=== PATIENT | male | born 1960 ===

== ENCOUNTER 2017-12-25 18:45 | Observation (INO) ==
[2017-12-25] MEDS ORDERED: ACETAMINOPHEN 325 MG TABLET PO PRN (22:45)
[2017-12-25] MEDS ORDERED: ONDANSETRON 4 MG/2 ML VIAL IV PRN (22:45)
[2017-12-25] MEDS ORDERED: DEXTROSE 50% 25 GM/50 ML VIAL IV PRN (22:45)
[2017-12-25] MEDS ORDERED: GLUCAGON 1 MG VIAL IM PRN (22:45)
[2017-12-25] MEDS ORDERED: SIMVASTATIN 20 MG TABLET PO SCH (23:00)
[2017-12-25] MEDS ORDERED: SODIUM CHLORIDE 0.9% 1,000 ML IV SCH (23:00)
[2017-12-25] MEDS ORDERED: NITROGLYCERIN SL 0.4 MG TABLET SL PRN (23:17)
[2017-12-25] MEDS ORDERED: MORPHINE 4 MG/1 ML VIAL IV PRN (23:18)
[2017-12-25] MEDS ORDERED: cloNIDine 0.1 MG TABLET PO PRN (23:19)
[2017-12-25 23:30] LABS: Troponin I < 0.015 NG/ML (0.00-0.045)
[2017-12-25] MEDS: CARVEDILOL 3.125 MG TABLET PO SCH (23:31)
[2017-12-25] MEDS: INSULIN GLARGINE 100 UNIT/ML SUBCUT SCH (23:33)
[2017-12-26 03:46] LABS: Basophils # 0.1 10*3/uL (0.0-0.2); Basophils % 0.6 % (0.0-0.8); Eosinophils # 1.3 10*3/uL (0.0-0.87); Eosinophils % 16.5 % (0.00-10.9); Hemoglobin 9.6 GM/DL (14.0-18.0); Immature Granulocytes % 0.3 %; Immature Granulocytes Absolute 0.02 #; Lymphocytes % 24.5 % (21.2-54.2); Mean Corpuscular HGB Conc 33.1 GM/DL (32-36); Mean Corpuscular Hemoglobin 32 PG (27-34); Mean Platelet Volume 10.5 FL (9.6-12.0); Monocytes # 0.7 10*3/uL (0.11-0.8); Monocytes % 9.2 % (1.7-12.7); Neutrophils # 3.9 10*3/uL (1.4-7.4); Neutrophils % 48.9 % (38.7-73.9); Platelet Count 171 T/CUMM (130-400); Red Blood Count 2.99 MC/CUMM (3.8-5.5); Red Cell Distribution Width 13.2 % (9.3-17.3)
[2017-12-26 04:36] LABS: Band Neutrophils 1 % (0-10); Eosinophils 17 % (0-10); Lymphocytes 20 % (20-55); Segmented Neutrophils 54 % (50-85); Total Cells Counted 100
[2017-12-26 04:37] LABS: Hypochromasia 1+; Ovalocytes Slight; Platelet Estimate Adequate
[2017-12-26 04:58] LABS: Alanine Aminotransferase 18 U/L (16-61); Albumin 2.3 G/DL (3.4-5.0); Alkaline Phosphatase 93 U/L (45-117); Aspartate Amino Transferase 15 U/L (0-37); Bilirubin,Total < 0.39 MG/DL (0.2-1.0); Blood Urea Nitrogen 35 MG/DL (7-18); Calcium 7.5 MG/DL (8.5-10.1); Cholesterol 189 MG/DL (50-200); Glucose 163 MG/DL (74-106); HDL Cholesterol 60 MG/DL (40-60); Osmolality,Calculated 294.1 MOS/KG (273-304); Potassium 3.6 MMOL/L (3.5-5.1); Risk Ratio 3.15; Sodium 142 MMOL/L (136-145); Total Protein 5.5 G/DL (6.4-8.3); Triglycerides 122 MG/DL (2-150); VLDL CHOLESTEROL 24.4 MG/DL
[2017-12-26] MEDS ORDERED: GLYBURIDE PO SCH (08:00)
[2017-12-26] MEDS: CARVEDILOL 3.125 MG TABLET PO SCH (08:47)
[2017-12-26] MEDS: CHLORTHALIDONE 25 MG TABLET PO SCH (08:47)
[2017-12-26] MEDS: LOSARTAN 25 MG TABLET PO SCH (08:47)
[2017-12-26] MEDS: PANTOPRAZOLE 40 MG TABLET PO SCH (08:49)
[2017-12-26] MEDS ORDERED: ASPIRIN CHEW 81 MG TABLET PO SCH (09:00)
[2017-12-26] MEDS ORDERED: SIMVASTATIN 20 MG TABLET PO SCH (09:00)
[2017-12-26] MEDS ORDERED: DILTIAZEM CD 120 MG CAPSULE PO SCH (09:00)
[2017-12-26] MEDS: INSULIN LISPRO 100 UNIT/ML SUBCUT SCH ×4 (09:10→20:37)
[2017-12-26] MEDS ORDERED: hydrALAZINE 20 MG/1 ML VIAL IV PRN (10:12)
[2017-12-26] MEDS: CARVEDILOL 6.25 MG TABLET PO SCH ×2 (11:56→17:36)
[2017-12-26] MEDS ORDERED: LORazepam 2 MG/1 ML VIAL IV PRN (13:58)
[2017-12-26 14:35] LABS: % Iron Saturation 22.7 % (18-50)
[2017-12-26 15:04] LABS: Folate > 24.0 NG/ML (5.4-24.0); Vitamin B12 219 PG/ML (211-911)
[2017-12-26] MEDS: CLORAZEPATE 7.5 MG TABLET PO SCH (20:34)
[2017-12-26] MEDS: INSULIN GLARGINE 100 UNIT/ML SUBCUT SCH (20:37)
[2017-12-26] MEDS ORDERED: ATORVASTATIN 40 MG TABLET PO SCH (21:00)
[2017-12-27 04:21] LABS: Basophils # 0.1 10*3/uL (0.0-0.2); Basophils % 0.8 % (0.0-0.8); Eosinophils # 1.4 10*3/uL (0.0-0.87); Eosinophils % 16.2 % (0.00-10.9); Hematocrit 31.6 VOL% (42.0-52.0); Hemoglobin 10.4 GM/DL (14.0-18.0); Immature Granulocytes % 0.2 %; Immature Granulocytes Absolute 0.02 #; Lymphocytes # 1.6 10*3/uL (1.4-4.0); Lymphocytes % 18.5 % (21.2-54.2); Mean Corpuscular HGB Conc 32.9 GM/DL (32-36); Mean Corpuscular Hemoglobin 31 PG (27-34); Mean Corpuscular Volume 95.2 FL (87-102); Mean Platelet Volume 10.6 FL (9.6-12.0); Monocytes # 0.7 10*3/uL (0.11-0.8); Monocytes % 8.1 % (1.7-12.7); Neutrophils # 4.8 10*3/uL (1.4-7.4); Neutrophils % 56.2 % (38.7-73.9); Platelet Count 174 T/CUMM (130-400); Red Blood Count 3.32 MC/CUMM (3.8-5.5); Red Cell Distribution Width 13.2 % (9.3-17.3); White Blood Count 8.6 T/CUMM (4-12)
[2017-12-27 04:49] LABS: Calcium 7.5 MG/DL (8.5-10.1); Osmolality,Calculated 288.3 MOS/KG (273-304); Potassium 3.7 MMOL/L (3.5-5.1)
[2017-12-27 04:59] LABS: Eosinophils 15 % (0-10); Lymphocytes 23 % (20-55); Microcytosis Slight; Ovalocytes Slight; Platelet Estimate Adequate; Segmented Neutrophils 59 % (50-85); Total Cells Counted 100
[2017-12-27] MEDS: CHLORTHALIDONE 25 MG TABLET PO SCH (08:43)
[2017-12-27] MEDS: CARVEDILOL 6.25 MG TABLET PO SCH (08:43)
[2017-12-27] MEDS: PANTOPRAZOLE 40 MG TABLET PO SCH (08:44)
[2017-12-27] MEDS: LOSARTAN 25 MG TABLET PO SCH (08:44)
[2017-12-27] MEDS: INSULIN LISPRO 100 UNIT/ML SUBCUT SCH (08:44)
[2017-12-27] MEDS: CLORAZEPATE 7.5 MG TABLET PO SCH (08:44)
[2017-12-27] MEDS ORDERED: ASPIRIN EC 81 MG TABLET PO SCH (09:00)
[2017-12-27 12:25] VITALS: BP 116/64
== END 2017-12-27 11:45 | disposition home or self-care (01) ==
LOC: N.TELES 20:22 → INTOOBSV 20:22 → SUATTDRO 20:22
PROVIDERS: ADMIT Internal Medicine; ATTEND Internal Medicine

== ENCOUNTER 2019-01-17 11:01 | Inpatient (IN) ==
[2019-01-17] MEDS ORDERED: ACETAMINOPHEN 325 MG TABLET PO PRN (14:52)
[2019-01-17] MEDS ORDERED: MORPHINE 4 MG/1 ML VIAL IV PRN (14:52)
[2019-01-17] MEDS ORDERED: GLUCAGON 1 MG VIAL IM PRN (14:52)
[2019-01-17] MEDS ORDERED: DEXTROSE 50% 25 GM/50 ML VIAL IV PRN (14:52)
[2019-01-17] MEDS ORDERED: PROMETHAZINE 25 MG/1 ML VIAL IM PRN (14:52)
[2019-01-17] MEDS ORDERED: ceFAZolin 1,000 MG in SYRINGE 1 EACH IV ONE (15:36)
[2019-01-17 15:41] LABS: Basophils # 0.1 10*3/uL (0.0-0.2); Basophils % 0.8 % (0.0-0.8); Eosinophils # 0.9 10*3/uL (0.0-0.87); Eosinophils % 12.1 % (0.00-10.9); Hematocrit 26.2 VOL% (42.0-52.0); Hemoglobin 8.5 GM/DL (14.0-18.0); Immature Granulocytes % 0.3 %; Immature Granulocytes Absolute 0.02 #; Lymphocytes # 1.4 10*3/uL (1.4-4.0); Lymphocytes % 19.6 % (21.2-54.2); Mean Corpuscular HGB Conc 32.4 GM/DL (32-36); Mean Corpuscular Volume 94.9 FL (87-102); Monocytes % 10.3 % (1.7-12.7); Neutrophils % 56.9 % (38.7-73.9); Platelet Count 150 T/CUMM (130-400); Red Blood Count 2.76 MC/CUMM (3.8-5.5); Red Cell Distribution Width 11.7 % (9.3-17.3); White Blood Count 7.4 T/CUMM (4-12)
[2019-01-17 16:05] LABS: Alanine Aminotransferase 19 U/L (16-61); Albumin 2.9 G/DL (3.4-5.0); Alkaline Phosphatase 99 U/L (45-117); Aspartate Amino Transferase 14 U/L (0-37); Bilirubin,Total < 0.39 MG/DL (0.2-1.0); Blood Urea Nitrogen 102 MG/DL (7-18); Calcium 6.7 MG/DL (8.5-10.1); Glucose 170 MG/DL (74-106); Osmolality,Calculated 308.8 MOS/KG (273-304); Total Protein 6.6 G/DL (6.4-8.3)
[2019-01-17 16:23] LABS: Band Neutrophils 1 % (0-10); Eosinophils 12 % (0-10); Hypochromasia Slight; Lymphocytes 18 % (20-55); Platelet Estimate Normal; Segmented Neutrophils 66 % (50-85); Total Cells Counted 100
[2019-01-17] MEDS: INSULIN LISPRO 100 UNIT/ML SUBCUT SCH ×2 (16:34→21:02)
[2019-01-17] MEDS: DOCUSATE SODIUM 100 MG CAPSULE PO SCH (20:57)
[2019-01-18 05:52] LABS: Basophils # 0.1 10*3/uL (0.0-0.2); Basophils % 0.8 % (0.0-0.8); Eosinophils % 13.2 % (0.00-10.9); Hematocrit 26.5 VOL% (42.0-52.0); Hemoglobin 8.8 GM/DL (14.0-18.0); Immature Granulocytes % 0.5 %; Immature Granulocytes Absolute 0.04 #; Lymphocytes # 1.4 10*3/uL (1.4-4.0); Lymphocytes % 18.4 % (21.2-54.2); Mean Corpuscular HGB Conc 33.2 GM/DL (32-36); Mean Corpuscular Volume 94.6 FL (87-102); Mean Platelet Volume 10.7 FL (9.6-12.0); Monocytes % 8.7 % (1.7-12.7); Neutrophils % 58.4 % (38.7-73.9); Platelet Count 150 T/CUMM (130-400); Red Cell Distribution Width 11.5 % (9.3-17.3); White Blood Count 7.5 T/CUMM (4-12)
[2019-01-18] MEDS ORDERED: FAMOTIDINE 20 MG TABLET PO ONE (06:00)
[2019-01-18 06:11] LABS: Risk Ratio 2.96; VLDL CHOLESTEROL 21.2 MG/DL
[2019-01-18 06:12] LABS: Calcium 6.7 MG/DL (8.5-10.1); Osmolality,Calculated 307.7 MOS/KG (273-304)
[2019-01-18 06:14] LABS: Eosinophils 13 % (0-10); Hypochromasia 1+; Lymphocytes 24 % (20-55); Ovalocytes Slight; Platelet Estimate Normal; Segmented Neutrophils 57 % (50-85); Total Cells Counted 100
[2019-01-18] MEDS: INSULIN LISPRO 100 UNIT/ML SUBCUT SCH ×4 (08:17→20:09)
[2019-01-18] MEDS ORDERED: ceFAZolin 1,000 MG in SYRINGE 1 EACH IV ONE (08:30)
[2019-01-18] MEDS ORDERED: LIDOCAINE 1% 20 ML VIAL ONE (09:30)
[2019-01-18] MEDS ORDERED: BUPIVACAINE MPF 0.25% 30 ML VIAL ONE (09:30)
[2019-01-18 09:43] LABS: Hepatitis B Core IgM Quant 0.09 Index; Hepatitis B Surface Ag Quant < 0.10 Index; Hepatitis B Surface Ag Result Negative (Negative); Hepatitis C Virus Ab Quant 0.05 Index; Hepatitis C Virus Ab Result Negative (Negative)
[2019-01-18] MEDS ORDERED: SODIUM CHLORIDE 0.9% 250 ML IV SCH (10:00)
[2019-01-18] MEDS ORDERED: hydrALAZINE 20 MG/1 ML VIAL IV PRN (10:12)
[2019-01-18] MEDS ORDERED: PROPOFOL 200 MG/20 ML VIAL IV ONE (12:21)
[2019-01-18] MEDS ORDERED: KETAMINE 500 MG/10 ML VIAL ONE (12:21)
[2019-01-18] MEDS ORDERED: LIDOCAINE 100 MG/5 ML SYRINGE ONE (12:21)
[2019-01-18] MEDS ORDERED: MIDAZOLAM 2 MG/2 ML VIAL ONE (12:21)
[2019-01-18] MEDS: PANTOPRAZOLE 40 MG TABLET PO SCH (12:22)
[2019-01-18] MEDS: DOCUSATE SODIUM 100 MG CAPSULE PO SCH ×2 (12:22→22:07)
[2019-01-18] MEDS ORDERED: PHENYLEPHRINE 1 MG/10 ML SYRINGE IV ONE (12:22)
[2019-01-18] MEDS: BISACODYL 5 MG TABLET PO SCH (12:22)
[2019-01-18] MEDS ORDERED: SODIUM CHLORIDE 0.9% 250 ML IV ONE (12:22)
[2019-01-18] MEDS ORDERED: HEPARIN 10,000 UNIT/10 ML VIAL IV SCH (14:30)
[2019-01-18] MEDS ORDERED: DEXTROSE 50% 25 GM/50 ML VIAL IV PRN (15:28)
[2019-01-18] MEDS: ZALEPLON 5 MG CAPSULE PO PRN (22:07)
[2019-01-18] MEDS: ONDANSETRON 4 MG/2 ML VIAL IV PRN (23:53)
[2019-01-19 05:33] LABS: Basophils # 0.1 10*3/uL (0.0-0.2); Basophils % 0.9 % (0.0-0.8); Eosinophils # 0.7 10*3/uL (0.0-0.87); Eosinophils % 9.2 % (0.00-10.9); Hematocrit 26.8 VOL% (42.0-52.0); Hemoglobin 8.8 GM/DL (14.0-18.0); Immature Granulocytes % 0.3 %; Immature Granulocytes Absolute 0.02 #; Lymphocytes # 1.2 10*3/uL (1.4-4.0); Lymphocytes % 16.1 % (21.2-54.2); Mean Corpuscular HGB Conc 32.8 GM/DL (32-36); Monocytes % 9.2 % (1.7-12.7); Neutrophils % 64.3 % (38.7-73.9); Platelet Count 146 T/CUMM (130-400); Red Blood Count 2.85 MC/CUMM (3.8-5.5); Red Cell Distribution Width 11.5 % (9.3-17.3); White Blood Count 7.7 T/CUMM (4-12)
[2019-01-19 05:47] LABS: Calcium 7.5 MG/DL (8.5-10.1); Osmolality,Calculated 297.5 MOS/KG (273-304)
[2019-01-19 07:23] LABS: % Iron Saturation 28.6 % (18-50); Ferritin 124.1 ng/ml (26-388)
[2019-01-19 07:36] LABS: Folate 9.3 NG/ML (5.4-24.0)
[2019-01-19] MEDS: DOCUSATE SODIUM 100 MG CAPSULE PO SCH ×3 (07:36→20:50)
[2019-01-19] MEDS: PANTOPRAZOLE 40 MG TABLET PO SCH ×2 (07:36→09:13)
[2019-01-19] MEDS: BISACODYL 5 MG TABLET PO SCH ×2 (07:36→09:13)
[2019-01-19] MEDS: INSULIN LISPRO 100 UNIT/ML SUBCUT SCH ×4 (07:38→20:59)
[2019-01-19] MEDS: ONDANSETRON 4 MG/2 ML VIAL IV PRN ×3 (10:04→20:51)
[2019-01-19] MEDS: ZALEPLON 5 MG CAPSULE PO PRN (20:50)
[2019-01-20 05:48] LABS: Basophils % 0.5 % (0.0-0.8); Eosinophils # 0.7 10*3/uL (0.0-0.87); Eosinophils % 8.6 % (0.00-10.9); Hematocrit 26.9 VOL% (42.0-52.0); Hemoglobin 8.8 GM/DL (14.0-18.0); Immature Granulocytes % 0.3 %; Immature Granulocytes Absolute 0.03 #; Lymphocytes # 1.6 10*3/uL (1.4-4.0); Mean Corpuscular HGB Conc 32.7 GM/DL (32-36); Mean Corpuscular Volume 93.7 FL (87-102); Mean Platelet Volume 10.7 FL (9.6-12.0); Monocytes % 9.8 % (1.7-12.7); Neutrophils % 61.8 % (38.7-73.9); Platelet Count 142 T/CUMM (130-400); Red Blood Count 2.87 MC/CUMM (3.8-5.5); Red Cell Distribution Width 11.6 % (9.3-17.3); White Blood Count 8.7 T/CUMM (4-12)
[2019-01-20 06:00] LABS: Calcium 7.8 MG/DL (8.5-10.1); Osmolality,Calculated 281.8 MOS/KG (273-304)
[2019-01-20] MEDS ORDERED: CYANOCOBALAMIN 1000 MCG/1 ML VIAL IM ONE (07:34)
[2019-01-20] MEDS: INSULIN LISPRO 100 UNIT/ML SUBCUT SCH ×4 (08:38→21:28)
[2019-01-20] MEDS: BISACODYL 5 MG TABLET PO SCH (08:39)
[2019-01-20] MEDS: PANTOPRAZOLE 40 MG TABLET PO SCH (08:39)
[2019-01-20] MEDS: DOCUSATE SODIUM 100 MG CAPSULE PO SCH ×2 (08:39→21:28)
[2019-01-20] MEDS ORDERED: GLIMEPIRIDE 2 MG TABLET PO SCH (12:00)
[2019-01-20] MEDS ORDERED: SODIUM PHOSPHATE ENEMA 133 ML BOTTLE RECTAL ONE (14:28)
[2019-01-20] MEDS: LACTULOSE 20 GM/30 ML UDCUP PO SCH ×2 (17:43→23:55)
[2019-01-20] MEDS: ONDANSETRON 4 MG/2 ML VIAL IV PRN (18:51)
[2019-01-20] MEDS ORDERED: SIMVASTATIN 40 MG TABLET PO SCH (21:00)
[2019-01-21 04:35] LABS: Basophils % 0.4 % (0.0-0.8); Eosinophils # 0.7 10*3/uL (0.0-0.87); Eosinophils % 8.4 % (0.00-10.9); Hematocrit 25.2 VOL% (42.0-52.0); Hemoglobin 8.2 GM/DL (14.0-18.0); Immature Granulocytes % 0.3 %; Immature Granulocytes Absolute 0.02 #; Lymphocytes # 1.6 10*3/uL (1.4-4.0); Lymphocytes % 19.8 % (21.2-54.2); Mean Corpuscular HGB Conc 32.5 GM/DL (32-36); Mean Corpuscular Volume 94.7 FL (87-102); Mean Platelet Volume 10.9 FL (9.6-12.0); Monocytes % 10.2 % (1.7-12.7); Neutrophils % 60.9 % (38.7-73.9); Platelet Count 130 T/CUMM (130-400); Red Blood Count 2.66 MC/CUMM (3.8-5.5); Red Cell Distribution Width 11.5 % (9.3-17.3); White Blood Count 7.8 T/CUMM (4-12)
[2019-01-21 04:57] LABS: Calcium 7.5 MG/DL (8.5-10.1); Osmolality,Calculated 283.8 MOS/KG (273-304)
[2019-01-21] MEDS: BISACODYL 5 MG TABLET PO SCH (08:10)
[2019-01-21] MEDS: PANTOPRAZOLE 40 MG TABLET PO SCH (08:13)
[2019-01-21] MEDS: DOCUSATE SODIUM 100 MG CAPSULE PO SCH (08:13)
[2019-01-21] MEDS: INSULIN LISPRO 100 UNIT/ML SUBCUT SCH ×2 (08:16→15:05)
[2019-01-21 15:03] VITALS: BP 134/87
== END 2019-01-21 15:20 | disposition home or self-care (01) | DRG 673 ==
LOC: SUATTDRO 14:11 → N.5E 14:11
PROVIDERS: ADMIT Internal Medicine; ATTEND Internal Medicine